=== PATIENT | male | born 1945 | race Caucasian/White ===

== ENCOUNTER 2021-06-04 01:13 | Inpatient (IN) | payer OTHER ==
[~2021-06-04] VITALS: Ht 162.6 cm; Wt 65.8 kg
[2021-06-04] VITALS (7 sets, daily range): BP systolic 104–146; BP diastolic 45–79
[2021-06-04] MEDS ORDERED: ONDANSETRON HCL 4MG/2ML INJ IV STA (03:08)
[2021-06-04] MEDS ORDERED: SODIUM CHLORIDE 0.9% 1,000 ML IV ONE (03:15)
[2021-06-04 03:31] LABS: BASOPHILS % 0.4 % (0.0-2.0); EOSINOPHILS % 0.2 % (0.0-5.0); HEMATOCRIT. 32.5 % (42.0-52.0); HEMOGLOBIN. 10.2 g/dL (14.0-18.0); LYMPHOCYTES % 32.3 % (20.0-50.0); MEAN CORPUSCULAR HEMOGLOBIN 23.7 pg (28.0-32.0); MEAN CORPUSCULAR VOLUME 75.8 fL (80.0-94.0); MEAN PLATELET VOLUME 8.7 fl (7.4-10.4); MONOCYTES % 4.2 % (2.0-8.0); NEUTROPHILS % 62.9 % (40.0-76.0); PLATELET 199 x1000/uL (130-400); RED BLOOD CELL COUNT 4.29 mill/uL (4.7-6.1); RED CELL DISTRIBUTION WIDTH 16.5 % (11.6-14.6)
[2021-06-04 03:40] LABS: CHLORIDE 100 mEq/L (98-107)
[2021-06-04 03:47] LABS: BETA HYDROXYBUTYRATE 1.1 mMol/L (0.0-0.3)
[2021-06-04] MEDS ORDERED: INSULIN REGULAR (HUMULIN R) 300UNITS/3ML VIAL IV SCH (04:15)
[2021-06-04] MEDS ORDERED: CALCIUM CHLORIDE 1GM/10ML SYR IV SCH (04:15)
[2021-06-04] MEDS ORDERED: SODIUM BICARBONATE 8.4% 1 MEQ/ML 50ML SYR IV SCH (04:15)
[2021-06-04 05:02] LABS: CLARITY URINE CLOUDY (CLEAR); COLOR URINE RED (YELLOW); KETONES URINE NEGATIVE (NEGATIVE); LEUKOCYTE ESTERASE URINE 2+ (NEGATIVE); NITRITE URINE NEGATIVE (NEGATIVE); OCCULT BLOOD URINE 3+ (NEGATIVE); PROTEIN URINE 3+ (NEGATIVE); SPECIFIC GRAVITY URINE 1.018 (1.005-1.030); UROBILINOGEN URINE 0.2 E.U./dL (0.2-1.0)
[2021-06-04] MEDS ORDERED: LORAZEPAM 0.5MG TABLET PO PRN (11:30)
[2021-06-04] MEDS ORDERED: HYDROCODONE/ACETAMINOPHEN 5/325MG TABLET PO PRN (11:30)
[2021-06-04] MEDS ORDERED: ACETAMINOPHEN 325MG TABLET PO PRN ×2 (11:30)
[2021-06-04] MEDS ORDERED: ONDANSETRON HCL 4MG/2ML INJ IV PRN (11:30)
[2021-06-04] MEDS ORDERED: IPRATROPIUM/ALBUTEROL 0.5-3(2.5)MG/3ML NEB HHN PRN (11:30)
[2021-06-04] MEDS ORDERED: DOCUSATE SODIUM 100MG CAPSULE PO PRN (11:30)
[2021-06-04] MEDS ORDERED: NALOXONE HCL 0.4MG/ML VIAL IV PRN (11:45)
[2021-06-04] MEDS ORDERED: SODIUM POLYSTYRENE SULFONATE 15 G/60 ML BOT PO SCH (12:00)
[2021-06-04 12:13] LABS: PROTHROMBIN TIME 10.8 sec (9.6-11.0)
[2021-06-04 12:16] LABS: PHOSPHORUS 3.1 mg/dL (2.5-4.9)
[2021-06-04 12:37] LABS: FOLIC ACID (FOLATE) SERUM 18.6 ng/mL (>5.38)
[2021-06-04 13:15] LABS: PROSTRATE SPECIFIC AG TOTAL 0.19 ng/mL (0.0-4.0)
[2021-06-04] MEDS: TAMSULOSIN HCL 0.4MG SR CAPSULE PO SCH (18:38)
[2021-06-04] MEDS: FINASTERIDE 5MG TABLET PO SCH (18:38)
[2021-06-04] MEDS: INSULIN LISPRO 100 UNITS/ML SUBCUT SCH (21:21)
[2021-06-04] MEDS: BLOOD SUGAR DIAGNOSTIC STRIP TEST SCH (21:25)
[2021-06-05] VITALS: BP 108/44
[2021-06-05 04:00] VITALS: BP 126/54
[2021-06-05] MEDS: BLOOD SUGAR DIAGNOSTIC STRIP TEST SCH ×4 (05:56→21:18)
[2021-06-05] MEDS: INSULIN LISPRO 100 UNITS/ML SUBCUT SCH ×4 (06:05→21:10)
[2021-06-05 07:47] LABS: BASOPHILS % 0.4 % (0.0-2.0); EOSINOPHILS % 1.9 % (0.0-5.0); HEMATOCRIT. 22.6 % (42.0-52.0); HEMOGLOBIN. 7.8 g/dL (14.0-18.0); LYMPHOCYTES % 45.4 % (20.0-50.0); MEAN CORPUSCULAR VOLUME 73.1 fL (80.0-94.0); MEAN PLATELET VOLUME 8.6 fl (7.4-10.4); MONOCYTES % 5.9 % (2.0-8.0); NEUTROPHILS % 46.4 % (40.0-76.0); PLATELET 122 x1000/uL (130-400); RED CELL DISTRIBUTION WIDTH 16.5 % (11.6-14.6)
[2021-06-05 08:00] VITALS: BP 133/49
[2021-06-05 08:00] LABS: PHOSPHORUS 3.1 mg/dL (2.5-4.9)
[2021-06-05] MEDS: TAMSULOSIN HCL 0.4MG SR CAPSULE PO SCH (09:45)
[2021-06-05] MEDS: FINASTERIDE 5MG TABLET PO SCH (09:45)
[2021-06-05 12:00] VITALS: BP 141/55
[2021-06-05 16:00] VITALS: BP 138/54
[2021-06-05] MEDS ORDERED: INSULIN GLARGINE UD 100 UNITS/ML SYR SUBCUT NR (19:30)
[2021-06-05 20:00] VITALS: BP 124/54
[2021-06-05] MEDS: LACTATED RINGERS 1,000 ML IV SCH (21:11)
[2021-06-05] MEDS: INSULIN GLARGINE UD 100 UNITS/ML SYR SUBCUT SCH (21:59)
[2021-06-06] VITALS (10 sets, daily range): BP systolic 124–147; BP diastolic 51–87
[2021-06-06 05:22] LABS: CHLORIDE 109 mEq/L (98-107)
[2021-06-06 05:27] LABS: PHOSPHORUS 3.5 mg/dL (2.5-4.9)
[2021-06-06] MEDS: BLOOD SUGAR DIAGNOSTIC STRIP TEST SCH ×4 (06:00→21:21)
[2021-06-06] MEDS: INSULIN LISPRO 100 UNITS/ML SUBCUT SCH ×4 (06:00→21:24)
[2021-06-06] MEDS: LACTATED RINGERS 1,000 ML IV SCH ×2 (06:18→21:26)
[2021-06-06 06:20] LABS: BASOPHILS % 0.3 % (0.0-2.0); EOSINOPHILS % 2.2 % (0.0-5.0); HEMATOCRIT. 21.4 % (42.0-52.0); LYMPHOCYTES % 52.8 % (20.0-50.0); MEAN CORPUSCULAR HEMOGLOBIN 23.4 pg (28.0-32.0); MEAN CORPUSCULAR VOLUME 73.4 fL (80.0-94.0); MEAN PLATELET VOLUME 9.4 fl (7.4-10.4); MONOCYTES % 5.3 % (2.0-8.0); NEUTROPHILS % 39.4 % (40.0-76.0); PLATELET 113 x1000/uL (130-400); RED BLOOD CELL COUNT 2.91 mill/uL (4.7-6.1); RED CELL DISTRIBUTION WIDTH 16.7 % (11.6-14.6)
[2021-06-06 07:49] LABS: HEMOGLOBIN. 6.8 g/dL (14.0-18.0)
[2021-06-06] MEDS ORDERED: POTASSIUM CHLORIDE 20MEQ TABLET SR PO SCH (08:00)
[2021-06-06] MEDS: TAMSULOSIN HCL 0.4MG SR CAPSULE PO SCH (09:08)
[2021-06-06] MEDS: FINASTERIDE 5MG TABLET PO SCH (09:08)
[2021-06-06] MEDS ORDERED: INSULIN LISPRO 100 UNITS/ML SUBCUT NR (13:15)
[2021-06-06 15:39] LABS: HEMATOCRIT 26.3 % (42.0-52.0); HEMOGLOBIN 8.4 g/dL (14.0-18.0)
[2021-06-06] MEDS: FERROUS SULFATE 325MG TABLET PO SCH (17:48)
[2021-06-06] MEDS: INSULIN GLARGINE UD 100 UNITS/ML SYR SUBCUT SCH (21:23)
[2021-06-06 21:51] LABS: HEMATOCRIT 25.7 % (42.0-52.0); HEMOGLOBIN 8.5 g/dL (14.0-18.0)
[2021-06-06] MEDS ORDERED: MAGNESIUM 2 G PREMIX 50 ML IV NR (22:00)
[2021-06-07] VITALS: BP 141/60
[2021-06-07 04:00] VITALS: BP 151/61
[2021-06-07 06:32] LABS: BASOPHILS % 0.3 % (0.0-2.0); EOSINOPHILS % 1.3 % (0.0-5.0); HEMATOCRIT. 26.2 % (42.0-52.0); HEMOGLOBIN. 8.9 g/dL (14.0-18.0); LYMPHOCYTES % 34.5 % (20.0-50.0); MEAN CORPUSCULAR HEMOGLOBIN 25.2 pg (28.0-32.0); MEAN CORPUSCULAR VOLUME 74.3 fL (80.0-94.0); MEAN PLATELET VOLUME 9.5 fl (7.4-10.4); MONOCYTES % 7.4 % (2.0-8.0); NEUTROPHILS % 56.5 % (40.0-76.0); PLATELET 112 x1000/uL (130-400); RED BLOOD CELL COUNT 3.52 mill/uL (4.7-6.1); RED CELL DISTRIBUTION WIDTH 16.2 % (11.6-14.6)
[2021-06-07] MEDS: BLOOD SUGAR DIAGNOSTIC STRIP TEST SCH ×4 (07:31→21:16)
[2021-06-07] MEDS: INSULIN LISPRO 100 UNITS/ML SUBCUT SCH ×4 (07:32→21:03)
[2021-06-07 08:00] VITALS: BP 154/62
[2021-06-07] MEDS: FERROUS SULFATE 325MG TABLET PO SCH ×3 (08:01→16:40)
[2021-06-07] MEDS: TAMSULOSIN HCL 0.4MG SR CAPSULE PO SCH (08:01)
[2021-06-07] MEDS: FINASTERIDE 5MG TABLET PO SCH (08:01)
[2021-06-07 08:45] LABS: CHLORIDE 108 mEq/L (98-107)
[2021-06-07 08:50] LABS: PHOSPHORUS 2.8 mg/dL (2.5-4.9)
[2021-06-07] MEDS: LACTATED RINGERS 1,000 ML IV SCH ×2 (09:43→21:02)
[2021-06-07] MEDS: INSULIN GLARGINE UD 100 UNITS/ML SYR SUBCUT SCH ×2 (09:44→21:04)
[2021-06-07 12:00] VITALS: BP 163/69
[2021-06-07] MEDS: CLONIDINE 0.1MG TABLET PO PRN (12:08)
[2021-06-07 16:00] VITALS: BP 114/50
[2021-06-07] MEDS ORDERED: TAMS-11 PO (16:40)
[2021-06-07] MEDS ORDERED: METF-414 MT (16:40)
[2021-06-07] MEDS ORDERED: FERR325T6 MT (16:40)
[2021-06-07] MEDS ORDERED: FINA5TAB11 PO (16:40)
[2021-06-07 20:00] VITALS: BP 133/53
[2021-06-07 21:37] LABS: HEMATOCRIT 25.3 % (42.0-52.0); HEMOGLOBIN 8.3 g/dL (14.0-18.0)
[2021-06-08] VITALS: BP 105/41
[2021-06-08 04:00] VITALS: BP 137/75
[2021-06-08] MEDS: INSULIN LISPRO 100 UNITS/ML SUBCUT SCH ×4 (05:32→20:57)
[2021-06-08] MEDS: BLOOD SUGAR DIAGNOSTIC STRIP TEST SCH ×4 (05:32→20:57)
[2021-06-08 08:00] VITALS: BP 161/64
[2021-06-08 08:35] LABS: BASOPHILS % 0.4 % (0.0-2.0); EOSINOPHILS % 2.4 % (0.0-5.0); HEMATOCRIT. 25.5 % (42.0-52.0); HEMOGLOBIN. 8.6 g/dL (14.0-18.0); LYMPHOCYTES % 45.3 % (20.0-50.0); MEAN CORPUSCULAR HEMOGLOBIN 25.3 pg (28.0-32.0); MEAN CORPUSCULAR VOLUME 75.1 fL (80.0-94.0); MEAN PLATELET VOLUME 9.3 fl (7.4-10.4); MONOCYTES % 7.6 % (2.0-8.0); NEUTROPHILS % 44.3 % (40.0-76.0); PLATELET 100 x1000/uL (130-400); RED BLOOD CELL COUNT 3.39 mill/uL (4.7-6.1); RED CELL DISTRIBUTION WIDTH 16.5 % (11.6-14.6)
[2021-06-08 09:20] LABS: CHLORIDE 103 mEq/L (98-107)
[2021-06-08] MEDS: FINASTERIDE 5MG TABLET PO SCH (10:25)
[2021-06-08] MEDS: TAMSULOSIN HCL 0.4MG SR CAPSULE PO SCH (10:25)
[2021-06-08] MEDS: INSULIN GLARGINE UD 100 UNITS/ML SYR SUBCUT SCH ×2 (10:27→21:00)
[2021-06-08] MEDS: FERROUS SULFATE 325MG TABLET PO SCH ×3 (10:30→17:10)
[2021-06-08 12:00] VITALS: BP 146/65
[2021-06-08] MEDS: LACTATED RINGERS 1,000 ML IV SCH (13:37)
[2021-06-08 16:00] VITALS: BP 163/62
[2021-06-08 20:00] VITALS: BP 144/53
[2021-06-08] MEDS ORDERED: BISACODYL 10MG SUPP PR NR (22:00)
[2021-06-09] VITALS: BP 147/56
[2021-06-09 04:00] VITALS: BP 155/64
[2021-06-09] MEDS: INSULIN LISPRO 100 UNITS/ML SUBCUT SCH ×4 (05:27→21:44)
[2021-06-09] MEDS: BLOOD SUGAR DIAGNOSTIC STRIP TEST SCH ×4 (05:27→21:44)
[2021-06-09 08:00] VITALS: BP 160/69
[2021-06-09 08:01] LABS: BASOPHILS % 0.3 % (0.0-2.0); EOSINOPHILS % 2.2 % (0.0-5.0); HEMATOCRIT. 27.2 % (42.0-52.0); LYMPHOCYTES % 44.7 % (20.0-50.0); MEAN CORPUSCULAR HEMOGLOBIN 24.9 pg (28.0-32.0); MEAN CORPUSCULAR VOLUME 75.2 fL (80.0-94.0); MEAN PLATELET VOLUME 9.2 fl (7.4-10.4); MONOCYTES % 8.6 % (2.0-8.0); NEUTROPHILS % 44.2 % (40.0-76.0); PLATELET 110 x1000/uL (130-400); RED BLOOD CELL COUNT 3.62 mill/uL (4.7-6.1); RED CELL DISTRIBUTION WIDTH 16.2 % (11.6-14.6)
[2021-06-09] MEDS: CLONIDINE 0.1MG TABLET PO PRN ×2 (08:44→17:32)
[2021-06-09] MEDS: FINASTERIDE 5MG TABLET PO SCH (08:44)
[2021-06-09] MEDS: FERROUS SULFATE 325MG TABLET PO SCH ×4 (08:44→17:37)
[2021-06-09] MEDS: TAMSULOSIN HCL 0.4MG SR CAPSULE PO SCH (08:45)
[2021-06-09 09:06] LABS: CHLORIDE 102 mEq/L (98-107)
[2021-06-09 09:11] LABS: PHOSPHORUS 2.3 mg/dL (2.5-4.9)
[2021-06-09 12:00] VITALS: BP 114/50
[2021-06-09] MEDS: INSULIN GLARGINE UD 100 UNITS/ML SYR SUBCUT SCH ×2 (13:42→21:44)
[2021-06-09] MEDS: POTASSIUM-SODIUM PHOSPHATE POWDER PACKET PO SCH ×2 (13:43→17:31)
[2021-06-09 16:00] VITALS: BP 167/74
[2021-06-09] MEDS ORDERED: SORBITOL 70% SOLN 30ML PO NR (18:00)
[2021-06-09 20:00] VITALS: BP 160/74
[2021-06-10] VITALS (7 sets, daily range): BP systolic 98–178; BP diastolic 36–83
[2021-06-10] MEDS ORDERED: PHENYLEPHRINE/SHK LV/MO/PET RECTAL OINTMENT 57GM PR SCH
[2021-06-10] MEDS ORDERED: PHENYLEPH/PRAMOXIN/GLYCR/PET RECTAL CREAM 26GM PR SCH
[2021-06-10] MEDS: PHENYLEPHRINE/SHK LV/MO/PET RECTAL OINTMENT 57GM PR SCH ×3 (00:46→13:11)
[2021-06-10] MEDS: CLONIDINE 0.1MG TABLET PO PRN (05:10)
[2021-06-10] MEDS: BLOOD SUGAR DIAGNOSTIC STRIP TEST SCH ×4 (05:10→21:58)
[2021-06-10] MEDS: INSULIN LISPRO 100 UNITS/ML SUBCUT SCH ×4 (05:11→21:57)
[2021-06-10 07:31] LABS: BASOPHILS % 0.2 % (0.0-2.0); LYMPHOCYTES % 17.8 % (20.0-50.0); MEAN CORPUSCULAR HEMOGLOBIN 23.9 pg (28.0-32.0); MEAN CORPUSCULAR VOLUME 74.6 fL (80.0-94.0); MEAN PLATELET VOLUME 9.4 fl (7.4-10.4); MONOCYTES % 5.5 % (2.0-8.0); NEUTROPHILS % 76.5 % (40.0-76.0); PLATELET 147 x1000/uL (130-400); RED BLOOD CELL COUNT 4.46 mill/uL (4.7-6.1); RED CELL DISTRIBUTION WIDTH 17.2 % (11.6-14.6)
[2021-06-10 07:41] LABS: PHOSPHORUS 2.6 mg/dL (2.5-4.9)
[2021-06-10 07:44] LABS: HEMOGLOBIN. 10.7 g/dL (14.0-18.0)
[2021-06-10 07:45] LABS: HEMATOCRIT. 33.3 % (42.0-52.0)
[2021-06-10] MEDS: POTASSIUM-SODIUM PHOSPHATE POWDER PACKET PO SCH (09:00)
[2021-06-10] MEDS: FERROUS SULFATE 325MG TABLET PO SCH ×2 (09:39→13:11)
[2021-06-10] MEDS: TAMSULOSIN HCL 0.4MG SR CAPSULE PO SCH (09:40)
[2021-06-10] MEDS: FINASTERIDE 5MG TABLET PO SCH (09:40)
[2021-06-10] MEDS ORDERED: SORBITOL 70% SOLN 30ML PO SCH (10:00)
[2021-06-10] MEDS: DOCUSATE SODIUM 100MG CAPSULE PO SCH (13:04)
[2021-06-10] MEDS: INSULIN GLARGINE UD 100 UNITS/ML SYR SUBCUT SCH ×2 (13:06→21:58)
[2021-06-10] MEDS ORDERED: INSULIN LISPRO 100 UNITS/ML SUBCUT NR (15:56)
[2021-06-10] MEDS: AMLODIPINE 2.5MG TABLET PO SCH (16:12)
[2021-06-10] MEDS ORDERED: SODIUM CHLORIDE 0.9% 500 ML IV NR (17:45)
[2021-06-10] MEDS: CEFTRIAXONE 1,000 MG in DEXTROSE 5% WATER 50 ML IV SCH (17:46)
[2021-06-10] MEDS: SODIUM CHLORIDE 0.9% 1,000 ML IV SCH ×2 (17:48→22:00)
[2021-06-10] MEDS ORDERED: LOSA50TA41 MT (22:06)
[2021-06-10] MEDS ORDERED: SIMV-43 MT (22:07)
[2021-06-11] VITALS: BP 100/77
[2021-06-11] MEDS: PHENYLEPHRINE/SHK LV/MO/PET RECTAL OINTMENT 57GM PR SCH ×4 (01:16→17:36)
[2021-06-11 04:00] VITALS: BP 99/54
[2021-06-11] MEDS: MICAFUNGIN 100 MG in SODIUM CHLORIDE 0.9% 100 ML IV SCH (04:11)
[2021-06-11] MEDS: BLOOD SUGAR DIAGNOSTIC STRIP TEST SCH ×4 (05:27→21:49)
[2021-06-11] MEDS: INSULIN LISPRO 100 UNITS/ML SUBCUT SCH ×4 (05:27→21:51)
[2021-06-11] MEDS: DEXTROSE 50% WATER 50ML SYRINGE IV PRN (05:49)
[2021-06-11 07:59] LABS: BASOPHILS % 0.2 % (0.0-2.0); EOSINOPHILS % 1.1 % (0.0-5.0); HEMOGLOBIN. 8.3 g/dL (14.0-18.0); LYMPHOCYTES % 22.1 % (20.0-50.0); MEAN CORPUSCULAR HEMOGLOBIN 25.2 pg (28.0-32.0); MEAN CORPUSCULAR VOLUME 76.4 fL (80.0-94.0); MEAN PLATELET VOLUME 9.8 fl (7.4-10.4); MONOCYTES % 7.7 % (2.0-8.0); NEUTROPHILS % 68.9 % (40.0-76.0); PLATELET 101 x1000/uL (130-400); RED BLOOD CELL COUNT 3.27 mill/uL (4.7-6.1); RED CELL DISTRIBUTION WIDTH 17.5 % (11.6-14.6)
[2021-06-11 08:00] VITALS: BP 127/50
[2021-06-11 08:12] LABS: PHOSPHORUS 4.6 mg/dL (2.5-4.9)
[2021-06-11] MEDS: POTASSIUM-SODIUM PHOSPHATE POWDER PACKET PO SCH ×2 (10:06→17:36)
[2021-06-11] MEDS: DOCUSATE SODIUM 100MG CAPSULE PO SCH ×2 (10:06→17:36)
[2021-06-11] MEDS: FERROUS SULFATE 325MG TABLET PO SCH ×3 (10:07→17:37)
[2021-06-11] MEDS: AMLODIPINE 2.5MG TABLET PO SCH (10:07)
[2021-06-11] MEDS: TAMSULOSIN HCL 0.4MG SR CAPSULE PO SCH (10:07)
[2021-06-11] MEDS: FINASTERIDE 5MG TABLET PO SCH (10:07)
[2021-06-11] MEDS: INSULIN GLARGINE UD 100 UNITS/ML SYR SUBCUT SCH ×2 (10:13→21:51)
[2021-06-11 12:00] VITALS: BP 136/56
[2021-06-11] MEDS: SODIUM CHLORIDE 0.9% 1,000 ML IV SCH (14:17)
[2021-06-11 16:00] VITALS: BP 107/41
[2021-06-11 16:49] LABS: CLARITY URINE TURBID (CLEAR); COLOR URINE YELLOW (YELLOW); KETONES URINE TRACE (NEGATIVE); LEUKOCYTE ESTERASE URINE 3+ (NEGATIVE); NITRITE URINE NEGATIVE (NEGATIVE); OCCULT BLOOD URINE 3+ (NEGATIVE); PROTEIN URINE 2+ (NEGATIVE); SPECIFIC GRAVITY URINE 1.019 (1.005-1.030); UROBILINOGEN URINE 0.2 E.U./dL (0.2-1.0)
[2021-06-11] MEDS: CEFTRIAXONE 1,000 MG in DEXTROSE 5% WATER 50 ML IV SCH (17:36)
[2021-06-11 20:00] VITALS: BP 111/45
[2021-06-11] MEDS ORDERED: INSULIN GLARGINE UD 100 UNITS/ML SYR SUBCUT SCH (22:00)
[2021-06-12] VITALS: BP 116/52
[2021-06-12 04:00] VITALS: BP 114/57
[2021-06-12] MEDS: BLOOD SUGAR DIAGNOSTIC STRIP TEST SCH ×4 (05:22→21:15)
[2021-06-12] MEDS: PHENYLEPHRINE/SHK LV/MO/PET RECTAL OINTMENT 57GM PR SCH ×5 (05:23→23:38)
[2021-06-12] MEDS: SODIUM CHLORIDE 0.9% 1,000 ML IV SCH ×3 (05:23→21:13)
[2021-06-12] MEDS: MICAFUNGIN 100 MG in SODIUM CHLORIDE 0.9% 100 ML IV SCH (05:24)
[2021-06-12] MEDS: INSULIN LISPRO 100 UNITS/ML SUBCUT SCH ×7 (05:25→21:15)
[2021-06-12 06:23] LABS: PHOSPHORUS 3.4 mg/dL (2.5-4.9)
[2021-06-12 06:27] LABS: BASOPHILS % 0.1 % (0.0-2.0); EOSINOPHILS % 0.9 % (0.0-5.0); HEMATOCRIT. 28.2 % (42.0-52.0); HEMOGLOBIN. 9.3 g/dL (14.0-18.0); LYMPHOCYTES % 20.2 % (20.0-50.0); MEAN CORPUSCULAR HEMOGLOBIN 24.7 pg (28.0-32.0); MEAN CORPUSCULAR VOLUME 74.7 fL (80.0-94.0); MEAN PLATELET VOLUME 9.9 fl (7.4-10.4); MONOCYTES % 5.1 % (2.0-8.0); NEUTROPHILS % 73.7 % (40.0-76.0); PLATELET 111 x1000/uL (130-400); RED BLOOD CELL COUNT 3.77 mill/uL (4.7-6.1); RED CELL DISTRIBUTION WIDTH 17.5 % (11.6-14.6)
[2021-06-12 08:00] VITALS: BP 150/76
[2021-06-12] MEDS: DOCUSATE SODIUM 100MG CAPSULE PO SCH ×2 (09:19→17:23)
[2021-06-12] MEDS: TAMSULOSIN HCL 0.4MG SR CAPSULE PO SCH (09:20)
[2021-06-12] MEDS: POTASSIUM-SODIUM PHOSPHATE POWDER PACKET PO SCH ×2 (09:20→17:23)
[2021-06-12] MEDS: FINASTERIDE 5MG TABLET PO SCH (09:20)
[2021-06-12] MEDS: AMLODIPINE 2.5MG TABLET PO SCH (09:20)
[2021-06-12] MEDS: FERROUS SULFATE 325MG TABLET PO SCH ×3 (09:24→17:23)
[2021-06-12] MEDS: INSULIN GLARGINE UD 100 UNITS/ML SYR SUBCUT SCH ×2 (11:35→21:14)
[2021-06-12 12:00] VITALS: BP 140/78
[2021-06-12] MEDS: FLUCONAZOLE 100MG TABLET PO SCH (13:48)
[2021-06-12 16:00] VITALS: BP 141/60
[2021-06-12] MEDS: CEFTRIAXONE 1,000 MG in DEXTROSE 5% WATER 50 ML IV SCH (17:25)
[2021-06-12 20:00] VITALS: BP 159/66
[2021-06-13] VITALS: BP 151/63
[2021-06-13] MEDS: MICAFUNGIN 100 MG in SODIUM CHLORIDE 0.9% 100 ML IV SCH (01:50)
[2021-06-13 04:00] VITALS: BP 141/57
[2021-06-13] MEDS: DEXTROSE 50% WATER 50ML SYRINGE IV PRN (05:55)
[2021-06-13] MEDS: BLOOD SUGAR DIAGNOSTIC STRIP TEST SCH ×4 (06:00→21:28)
[2021-06-13] MEDS: PHENYLEPHRINE/SHK LV/MO/PET RECTAL OINTMENT 57GM PR SCH ×4 (06:00→23:12)
[2021-06-13] MEDS: INSULIN LISPRO 100 UNITS/ML SUBCUT SCH ×7 (06:01→21:28)
[2021-06-13] MEDS: SODIUM CHLORIDE 0.9% 1,000 ML IV SCH ×2 (06:01→17:42)
[2021-06-13 06:46] LABS: BASOPHILS % 0.2 % (0.0-2.0); EOSINOPHILS % 2.2 % (0.0-5.0); HEMATOCRIT. 27.7 % (42.0-52.0); HEMOGLOBIN. 9.1 g/dL (14.0-18.0); LYMPHOCYTES % 26.3 % (20.0-50.0); MEAN CORPUSCULAR HEMOGLOBIN 24.7 pg (28.0-32.0); MEAN CORPUSCULAR VOLUME 74.9 fL (80.0-94.0); MEAN PLATELET VOLUME 9.2 fl (7.4-10.4); MONOCYTES % 6.7 % (2.0-8.0); NEUTROPHILS % 64.6 % (40.0-76.0); PLATELET 143 x1000/uL (130-400); RED CELL DISTRIBUTION WIDTH 17.3 % (11.6-14.6)
[2021-06-13 07:11] LABS: PHOSPHORUS 2.6 mg/dL (2.5-4.9)
[2021-06-13 08:00] VITALS: BP 173/75
[2021-06-13] MEDS: FERROUS SULFATE 325MG TABLET PO SCH ×3 (09:10→17:42)
[2021-06-13] MEDS: POTASSIUM-SODIUM PHOSPHATE POWDER PACKET PO SCH ×2 (09:10→17:42)
[2021-06-13] MEDS: FLUCONAZOLE 100MG TABLET PO SCH (09:11)
[2021-06-13] MEDS: DOCUSATE SODIUM 100MG CAPSULE PO SCH ×2 (09:11→17:42)
[2021-06-13] MEDS: FINASTERIDE 5MG TABLET PO SCH (09:11)
[2021-06-13] MEDS: TAMSULOSIN HCL 0.4MG SR CAPSULE PO SCH (09:12)
[2021-06-13] MEDS: AMLODIPINE 2.5MG TABLET PO SCH (09:12)
[2021-06-13] MEDS: INSULIN GLARGINE UD 100 UNITS/ML SYR SUBCUT SCH ×2 (10:00→11:11)
[2021-06-13 12:00] VITALS: BP 159/69
[2021-06-13 16:30] VITALS: BP 164/65
[2021-06-13] MEDS: CEFTRIAXONE 1,000 MG in DEXTROSE 5% WATER 50 ML IV SCH (17:42)
[2021-06-13] MEDS: CLONIDINE 0.1MG TABLET PO PRN (17:46)
[2021-06-13 20:00] VITALS: BP 137/58
[2021-06-13] MEDS ORDERED: FLUC100T42 MT (20:46)
[2021-06-13] MEDS ORDERED: INSULIN GLARGINE UD 100 UNITS/ML SYR SUBCUT SCH (22:00)
[2021-06-14] VITALS: BP 115/53
[2021-06-14 04:00] VITALS: BP 131/55
[2021-06-14] MEDS: PHENYLEPHRINE/SHK LV/MO/PET RECTAL OINTMENT 57GM PR SCH ×3 (05:59→17:06)
[2021-06-14] MEDS: SODIUM CHLORIDE 0.9% 1,000 ML IV SCH ×2 (06:03→15:03)
[2021-06-14] MEDS: BLOOD SUGAR DIAGNOSTIC STRIP TEST SCH ×3 (06:24→16:12)
[2021-06-14] MEDS: INSULIN LISPRO 100 UNITS/ML SUBCUT SCH ×4 (06:24→17:07)
[2021-06-14 06:46] LABS: BASOPHILS % 0.3 % (0.0-2.0); EOSINOPHILS % 3.4 % (0.0-5.0); HEMATOCRIT. 23.4 % (42.0-52.0); HEMOGLOBIN. 7.8 g/dL (14.0-18.0); MEAN CORPUSCULAR HEMOGLOBIN 25.1 pg (28.0-32.0); MEAN CORPUSCULAR VOLUME 75.4 fL (80.0-94.0); MEAN PLATELET VOLUME 9.2 fl (7.4-10.4); NEUTROPHILS % 51.3 % (40.0-76.0); PLATELET 129 x1000/uL (130-400); RED CELL DISTRIBUTION WIDTH 16.8 % (11.6-14.6)
[2021-06-14 07:43] LABS: PHOSPHORUS 2.5 mg/dL (2.5-4.9)
[2021-06-14 08:00] VITALS: BP 153/69
[2021-06-14] MEDS: TAMSULOSIN HCL 0.4MG SR CAPSULE PO SCH (08:05)
[2021-06-14] MEDS: FLUCONAZOLE 100MG TABLET PO SCH (08:05)
[2021-06-14] MEDS: AMLODIPINE 2.5MG TABLET PO SCH (08:05)
[2021-06-14] MEDS: FINASTERIDE 5MG TABLET PO SCH (08:05)
[2021-06-14] MEDS: FERROUS SULFATE 325MG TABLET PO SCH ×3 (08:05→16:41)
[2021-06-14] MEDS: DOCUSATE SODIUM 100MG CAPSULE PO SCH ×2 (08:05→16:11)
[2021-06-14] MEDS: POTASSIUM-SODIUM PHOSPHATE POWDER PACKET PO SCH ×2 (08:05→16:11)
[2021-06-14] MEDS ORDERED: AMLO5TAB88 MT (08:11)
[2021-06-14 10:59] VITALS: BP 153/69
[2021-06-14 12:00] VITALS: BP 167/70
[2021-06-14] MEDS: CLONIDINE 0.1MG TABLET PO PRN (12:18)
[2021-06-14 16:00] VITALS: BP 140/59
[2021-06-14] MEDS: CEFTRIAXONE 1,000 MG in DEXTROSE 5% WATER 50 ML IV SCH (16:11)
== END 2021-06-14 18:00 | disposition home or self-care (01) | DRG 871 ==
LOC: ER 01:13 → MICUSO 04:44 → 8WST 10:39
PROVIDERS: ADMIT Internal Medicine; ATTEND Internal Medicine
PROC: 30233N1 Transfusion of Nonautologous Red Blood Cells into Peripheral Vein, Percutaneous Approach (ICD-10-PCS; principal; 2021-06-06)
DX: A41.9 Sepsis, unspecified organism (principal); N17.0 Acute kidney failure with tubular necrosis; E44.0 Moderate protein-calorie malnutrition; N13.8 Other obstructive and reflux uropathy; N13.30 Unspecified hydronephrosis; B37.49 Other urogenital candidiasis; R33.9 Retention of urine, unspecified; C61 Malignant neoplasm of prostate; D50.9 Iron deficiency anemia, unspecified; E11.65 Type 2 diabetes mellitus with hyperglycemia; E87.5 Hyperkalemia; I10 Essential (primary) hypertension; N40.0 Benign prostatic hyperplasia without lower urinary tract symptoms; R31.0 Gross hematuria; Z79.4 Long term (current) use of insulin; Z82.49 Family history of ischemic heart disease and other diseases of the circulatory system; Z90.49 Acquired absence of other specified parts of digestive tract; Z68.24 Body mass index [BMI] 24.0-24.9, adult
CPT/HCPCS: 36415; 71045; 74018; 74176; 76770; 80048; 80053; 81003; 82010; 82270; 82550; 82607; 82728; 82746; 82962; 83036; 83540; 83550; 83605; 83735; 83880; 84100; 84132; 84145; 84153; 84484; 85014; 85018; 85025; 85044; 86850; 86870; 86900; 86920; 87106; 87426; 93005; 97162; 97165; 97535; 99291; A6261; C1893; J0696; J1815; J2248; J2405; J3475; J3490; J7030; J7040; J7050; J7060; J7120; P9016; A4315; G0103